=== PATIENT | male | born 1955 | race African-American/Black ===

== ENCOUNTER 2018-10-11 19:09 | Emergency (ER) | payer OTHER ==
[2018-10-11] MEDS ORDERED: KETOROLAC 30 MG/ML INJ ONE (21:07)
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
[2018-10-12 02:44] VITALS: TEMP 97.5
[2018-10-12 02:46] VITALS: O2SAT 100
[2018-10-12 02:50] VITALS: BP 167/82
--- NOTE | 2018-10-12 13:11 | RAD REPORT ---
EXAM DESCRIPTION: CT - Thorax Darrian Paniagua - 10/11/2018 9:46 pm CLINICAL HISTORY: The patient is 62 years old and is Male; PAIN TECHNIQUE: Axial computed tomography images of the chest without intravenous contrast. Sagittal an d coronal reformatted images were created and reviewed. This CT exam was performed using one or mor e of the following dose reduction techniques: automated exposure control, adjustment of the mA and/ or kV according to patient size, and/or use of iterative reconstruction technique. COMPARISON: None. FINDINGS: LUNGS: Mild paraseptal and centrilobular emphysematous changes of the upper lung zones. No focal consolidation. PLEURAL SPACE: No pleural effusion or pneumothorax. HEART: Mild prominence of the cardiac silhouette. No pericardial effusion. Minimal coronary calcifications. BONES/JOINTS: Unremarkable. No acute fracture. No dislocation. SOFT TISSUES: Filling shaped soft tissue density in the retroareolar region, likely gynecomastia. VASCULATURE: Mild calcification of the aortic annulus. No thoracic aortic aneurysm. LYMPH NODES: Unremarkable. No enlarged lymph nodes. PANCREAS: Fatty infiltration of the pancreatic parenchyma. OTHER FINDINGS: Visualized upper abdomen demonstrate no gross abnormality. IMPRESSION: 1. No focal consolidation, pleural effusion or pneumothorax. 2. Apical predominant emphysematous changes with bullous formation. 3. Suggestion of gynecomastia. Electronically signed by: George Thompson DO 10/11/2018 9:40 PM CDT Due to temporary technical issues with the PACS/Fluency reporting system, reports are being signed by the in house radiologist as a courtesy to ensure prompt reporting. The interpreting radiologist is f ully responsible for the content of the report.
--- NOTE | 2018-10-12 13:13 | RAD REPORT ---
EXAM DESCRIPTION: CT - Spine Lumbar Wo Con - 10/11/2018 9:45 pm CLINICAL HISTORY: 62 years Male PAIN COMPARISON: None TECHNIQUE: Multiplanar imaging through the lumbar spine without contrast. This exam was performed according to our departmental dose-optimization program, which includes automated exposure control, a djustment of the mA and/or kV according to patient size and/or use of iterative reconstruction techni que. FINDINGS: No fracture. Mild L5 vertebral body height loss. No subluxation. Disc space narrowing and reactive endplate irregularity as well as vacuum phenomenon at L4-5. Lower l umbar facet arthropathy. Paraspinal soft tissues are unremarkable. Visualized abdomen demonstrates no acute abnormality. Atherosclerotic vascular calcifications. IMPRESSION: No acute fracture or subluxation. L4-5 spondylosis with suggested spinal canal and foraminal stenosis. Lumbar spine MRI may be of diagn ostic use. Atherosclerotic disease. Electronically signed by: George Thompson DO 10/11/2018 9:32 PM CDT Due to temporary technical issues with the PACS/Fluency reporting system, reports are being signed by the in house radiologist as a courtesy to ensure prompt reporting. The interpreting radiologist is f ully responsible for the content of the report.
== END 2018-10-12 00:40 | disposition home or self-care (01) ==
LOC: ER 19:09
DX: S33.5XXA Sprain of ligaments of lumbar spine, initial encounter (principal); S33.8XXA Sprain of other parts of lumbar spine and pelvis, initial encounter; V19.9XXA Pedal cyclist (driver) (passenger) injured in unspecified traffic accident, initial encounter; Z79.82 Long term (current) use of aspirin; I10 Essential (primary) hypertension
CPT/HCPCS: 71250; 72131; 96374; 99284